=== PATIENT | female | born 1980 | race African-American/Black ===

== ENCOUNTER 2017-03-28 23:52 | Emergency (ER) | payer MEDICAID, OTHER ==
[~2017-03-28] VITALS: Ht 170.2 cm; Wt 85.0 kg
[~2017-03-28 23:52] MED LIST: Z.0.NO CURRENT MEDS
[2017-03-28 23:54] VITALS: BP 135/96; PULSE 66; RESP 16; TEMP 98.2; O2SAT 100
--- NOTE | 2017-03-29 00:37 | PD ---
HPI . Neck pain Chief Complaint: Back/ Neck Pain or Injury Time Seen by Provider: 00:32 Travel History International Travel<30 days: No Contact w/Intl Traveler<30days: No Traveled to known affect area: No History of Present Illness HPI This patient presents with the chief complaint of neck pain. She reports chronic neck pain for at least 4 months. Exacerbated by working. She states that she's been taking hot showers for it. She states that she does not like taking medications for it. There was nothing new or different about is not to cause her to present to the emergency department. She states that she just got insurance. She states that she would like to have x-rays made. I asked her to show me where her neck hurts and she points to the right trapezius. PFSH Past Medical History Immunizations Current: Yes Tetanus Vaccination: Unknown Influenza Vaccination: No ?: Not LMP: 03/18/17 : 5 Para: 4 Past Surgical History Abdominal Surgery: Yes (HERNIA REPAIR, RIGHT INGUINAL) Social History Alcohol Use: Yes (occ) Tobacco Use: Yes (occ) Substance Use: No Allergies-Medications (Allergen,Severity, Reaction): Coded Allergies: amoxicillin (Unverified Allergy, Severe, HIVES, 03/28/17) acetaminophen (Unverified Adverse Reaction, Severe, VOMITING, 03/28/17) hydrocodone (Unverified Adverse Reaction, Severe, VOMITING, 03/28/17) Reported Meds & Prescriptions Reported Meds & Active Scripts Active Reported No Current Meds (Miscellaneous Medication) Misc Review of Systems Except as stated in HPI: all other systems reviewed are Neg HENT: Positive: Neck Pain Physical Exam Narrative GENERAL: Awake and alert and in no acute distress. This patient never looked up from texting to talk to me. SKIN: Warm and dry. HEAD: Normocephalic/atraumatic. EYES: Pupils are equal. Extraocular movements are intact. NECK: Normal range of motion. She is moving her head in every direction continuously with no apparent pain. CARDIOVASCULAR: Regular rate and rhythm. RESPIRATORY: Nonlabored respirations. MUSCULOSKELETAL: Atraumatic. NEUROLOGICAL: Nonfocal. She walks without difficulty. She is using both hands to text without difficulty. PSYCHIATRIC: Appropriate mood and affect. Data Data Last Documented VS Vital Signs Date Time Temp Pulse Resp B/P (MAP) Pulse Ox O2 Delivery O2 Flow Rate FiO2 03/28/17 23:54 98.2 66 16 135/96 (109) 100 Room Air MDM Medical Decision Making Medical Screen Exam Complete: Yes Emergency Medical Condition: Yes Differential Diagnosis Differential diagnosis of neck pain includes but is not limited to muscle spasm/ pain, arthritis, spinal stenosis, HNP, epidural abscess Narrative Course This patient presents complaining of right-sided neck pain for months. She is actively texting while moving her neck almost continuously with no difficulty. She is requesting x-rays of her neck. I have explained to her that x-rays will not help us sort out muscular pain in her neck. She then got up and walked out. Diagnosis Primary Impression: Neck pain Disposition: AGAINST MEDICAL ADVICE Condition: Stable Shireen Tamez MD Mar 29, 2017 00:37
== END 2017-03-29 00:50 | disposition home or self-care (01) ==
LOC: NEPC 23:52
DX: M54.2 Cervicalgia (principal); G89.29 Other chronic pain; F17.200 Nicotine dependence, unspecified, uncomplicated; Z88.0 Allergy status to penicillin; Z88.5 Allergy status to narcotic agent; Z88.6 Allergy status to analgesic agent
CPT/HCPCS: 99281